=== PATIENT | male | born 2000 | race American Indian/Alaskan Native ===

== ENCOUNTER 2021-03-28 15:05 | Emergency (ER) | payer OTHER, SELFPAY ==
--- NOTE | 2021-03-28 15:29 | Emergency Department Report ---
ED Psych HPI - General Chief Complaint: Psych Stated Complaint: MH EVAL Time Seen by Provider: 03/28/21 15:25 Source: EMS Mode of arrival: Stretcher - History of Present Illness Initial Comments: Chief complaint: Abnormal behavior HPI this is a 20-year-old male with history of mental health disorder noncompliant with psychiatric medications who presents with abnormal behavior. Several bystanders called 911 to report that patient was acting erratically. He was walking naked down hallway [address]. When approached by EMS, he had erratic behavior. He twice jumped out of the ambulance when encouraged to be transported. He exhibited aggressive behavior. He used foul language. Observed circular pressured speech. Patient required chemical restraint with 5 mg Versed, 5 mg Haldol, 50 mg Benadryl. At the scene, police was able to contact mother. Mother states that he lives in [place]. She does not allow him to stay with her because he is not compliant with his medication. She does not know his medications or his diagnosis. Patient is currently sedated. He required four-point restraints during transportation. Phone number for mother [phone] Phone number for father [phone] Complaint: altered mental status -: unknown Associated Psychiatric Symptoms: racing thoughts, other (Aggressive behavior) Quality: constant Improves With: other (unknown) Worsens With: other (unknown) Context: not taking psychiatric - Related Data Allergies Allergy/AdvReac Type Severity Reaction Status Date / Time No Known Allergies Allergy Unverified 03/29/21 09:06 ED Review of Systems ROS: Stated complaint: MH EVAL Other details as noted in HPI Comment: Unobtainable due to pts medical conditions (Patient is sedated) ED Past Medical Hx - Past Medical History Additional medical history: Unable to be obtained - Surgical History Additional Surgical History: Unable to be obtained ED Physical Exam - General Limitations: Altered Mental Status General appearance: other (Sedated protecting airway purposeful movement localizes painful stimuli) - Head Head exam: Present: atraumatic, normocephalic - Eye Eye exam: Present: normal appearance - ENT ENT exam: Present: mucous membranes moist - Neck Neck exam: Present: normal inspection, full ROM - Respiratory Respiratory exam: Present: normal lung sounds bilaterally. Absent: respiratory distress, wheezes, rales, rhonchi - Cardiovascular Cardiovascular Exam: Present: regular rate, normal rhythm, normal heart sounds - GI/Abdominal GI/Abdominal exam: Present: soft. Absent: distended, tenderness, guarding, rebound - Extremities Exam Extremities exam: Present: normal inspection - Neurological Exam Neurological exam: Present: other (Sedated) - Skin Skin exam: Present: warm, dry, intact, normal color ED Course Vital Signs 03/28/21 03/28/21 03/28/21 15:19 15:27 15:30 Temperature 98 F Pulse Rate 105 H 89 Respiratory 16 22 Rate Blood Pressure 113/68 113/68 Blood Pressure 121/77 [Right] O2 Sat by Pulse 98 97 Oximetry 03/28/21 03/28/21 03/28/21 15:46 16:00 16:16 Temperature Pulse Rate 85 83 78 Respiratory 21 21 22 Rate Blood Pressure 122/71 115/70 122/74 Blood Pressure [Right] O2 Sat by Pulse 97 98 99 Oximetry 03/28/21 03/28/21 03/28/21 16:30 16:46 17:00 Temperature Pulse Rate 80 75 61 Respiratory 21 18 18 Rate Blood Pressure 127/75 122/74 127/90 Blood Pressure [Right] O2 Sat by Pulse 99 100 100 Oximetry 03/28/21 03/28/21 03/28/21 17:16 17:30 17:46 Temperature Pulse Rate 69 71 70 Respiratory 21 21 21 Rate Blood Pressure 106/65 107/67 106/67 Blood Pressure [Right] O2 Sat by Pulse 99 97 98 Oximetry 03/28/21 03/28/21 03/28/21 18:00 18:16 18:30 Temperature Pulse Rate 70 Respiratory 21 15 19 Rate Blood Pressure 101/70 101/70 102/66 Blood Pressure [Right] O2 Sat by Pulse 98 99 Oximetry 03/28/21 03/28/21 03/28/21 18:53 19:10 19:20 Temperature Pulse Rate Respiratory 11 L 16 Rate Blood Pressure 126/86 111/62 Blood Pressure [Right] O2 Sat by Pulse 79 L 99 Oximetry 03/29/21 03/29/21 06:05 08:49 Temperature 98.0 F 98.0 F Pulse Rate 65 67 Respiratory 18 20 Rate Blood Pressure Blood Pressure 107/65 109/44 [Right] O2 Sat by Pulse 95 100 Oximetry - Reevaluation(s) Reevaluation #1: 03/28/21 18:41 Upon reevaluation. Patient is arousable slightly sedated. Protecting airway. Purposeful movement. Covered his head with with sheet. ED Medical Decision Making - Lab Data Result diagrams: 03/28/21 15:39 03/28/21 15:39 - Medical Decision Making Acute psychosis with history of mental health disorder. Patient is medically clear for psychiatric care. Additional considerations drug-induced psychosis. Awaiting treatment recommendations by mental health team once patient completely awakens from sedation. Urine tox screen positive for marijuana and benzodiazepine. Patient is medically clear for psychiatric care. He is awake alert. Appropriate for inpatient treatment. 1013 form completed. ED hold order in place. Final disposition according to electronic medical record: Transfer to [facility] Critical care attestation.: If time is entered above; I have spent that time in minutes in the direct care of this critically ill patient, excluding procedure time. ED Disposition Clinical Impression: Acute psychosis Disposition: [id number]/TX-65 PSY HOSP/PSY UNIT Is pt being admited?: No Does the pt Need Aspirin: No Condition: Stable
[2021-03-28 15:51] LABS: Basophils # (Auto) 0.1 K/mm3 (0.0-0.1); Basophils % (Auto) 0.9 % (0.0-1.8); Eosinophils # (Auto) 0.1 K/mm3 (0.0-0.4); Eosinophils % (Auto) 1.5 % (0.0-4.3); Hematocrit 40.5 % (35.5-45.6); Hemoglobin 13.6 gm/dl (11.8-15.2); Lymphocytes # (Auto) 1.4 K/mm3 (1.2-5.4); Lymphocytes % (Auto) 18.6 % (13.4-35.0); Mean Corpuscular HGB Conc 34 % (32-34); Mean Corpuscular Volume 87 fl (84-94); Monocytes # (Auto) 0.8 K/mm3 (0.0-0.8); Monocytes % (Auto) 10.2 % (0.0-7.3); Platelet Count 283 K/mm3 (140-440); Red Blood Count 4.66 M/mm3 (3.65-5.03); Red Cell Distribution Width 12.2 % (13.2-15.2)
[2021-03-28 16:19] LABS: Alanine Aminotransferase 12 units/L (7-56); Albumin 4.8 g/dL (3.9-5); BUN/Creatinine Ratio 23; Blood Urea Nitrogen 23 mg/dL (9-20); Calcium 9.5 mg/dL (8.4-10.2); Hemolysis Index 23
[2021-03-28] MEDS ORDERED: ALUM-MAG HYDROXIDE-SIMETHICONE 200-200-20MG/5ML ORAL LIQD 30 ML PO PRN (18:44)
[2021-03-28] MEDS ORDERED: ACETAMINOPHEN 325 MG TAB PO PRN (18:44)
[2021-03-28 19:31] LABS: Bilirubin,Urine NEG (Negative); Blood,Urine NEG (Negative); Color,Urine Amber (Yellow); Mucus,Urine 3+ /HPF
[2021-03-28 19:39] LABS: Amphetamine Screen,Urine Negative; Cocaine Screen,Urine Negative; Methadone Screen,Urine Negative; Opiate Screen,Urine Negative
[2021-03-28 19:58] LABS: Benzodiazepines Screen,Urine Positive; Cannabinoid Screen,Urine Positive
[2021-03-29 08:51] VITALS: BP 109/44
[2021-03-29] MEDS ORDERED: LORazepam 2 MG/ML VIAL IM ONE (09:05)
--- NOTE | 2021-03-29 09:19 | Consultation ---
History of Present Illness - Reason for Consult Consult date: 03/29/21 Reason for consult: MHE Requesting physician: WYATT SLOAN - History of Present Psychiatric Illness Per ED Provider: CHRISTINA this is a 20-year-old male with history of mental health disorder noncompliant with psychiatric medications who presents with abnormal behavior. Several bystanders called 911 to report that patient was acting erratically. He was walking naked down hallway [address]. When approached by EMS, he had erratic behavior. He twice jumped out of the ambulance when encouraged to be transported. He exhibited aggressive behavior. He used foul language. Observed circular pressured speech. Patient required chemical restraint with 5 mg Versed, 5 mg Haldol, 50 mg Benadryl. At the scene, police was able to contact mother. Mother states that he lives in [place]. She does not allow him to stay with her because he is not compliant with his medication. She does not know his medications or his diagnosis. Patient is currently sedated. He required four-point restraints during transportation. PSYCH HPI Patient is a 20-year-old single unemployed -[place] male with past psychiatric history of Bipolar and schizophrenia history who was brought in by EMS after bystanders reported erratic behavior. Patient seen in isolation due to aggressive and violent behavior by ED staff. Was able to approach patient in the room, patient reported all his life he has been expressing trauma but is unable to describe his trauma. Patient states that he was picked up in a parking lot and did not know what that happened only to wake up here. When asked what makes him angry, patient states that being here makes him very aggressive, report that he has experienced pain all his life, and that his life has not been moving anywhere. Patient endorses marijuana use and he does not do other drug. states his mom and dad lives right here in [place], and he has 3 younger siblings that looks up to him. PSYCH Diagnoses: Bipolar and schizophrenia Suicide attempts or Self-harm behavior: None reported Prior psychiatric hospitalizations: Yes Substance Abuse history: Marijuana Previous psychiatric medications tried: None reported Outpatient treatment: None reported PAST MEDICAL HISTORY: None reported Family Psychiatric History: None reported or documented SOCIAL HISTORY Marital Status: single Living Arrangements: with self Employment Status: unemployed Access to guns/weapons: none reported Education: some college History of Abuse: none reported Legal History: None reported REVIEW OF SYSTEMS Constitutional: Negative for weight loss ENT: Negative for stridor Respiratory: Negative for cough or hemoptysis All other systems reviewed and are negative MENTAL STATUS EXAMINATION General Appearance and Behavior: Age appropriate, fair hygiene, wearing appropriate clothes, lying in bed, poor eye contact, cooperative irritable with questioning. Cooperation: Participating, Hostile and Guarded Psychomotor Behavior: unremarkable and within normal limits Mood: I don't know Affect and affective range: flat, preservative Thought Process: Illogical, Blocked, Thought Content: Hopelessness, Speech: Normal volume, Regular rate and rhythm, Intellectual Functioning: Average Suicidal Ideation: Denies SI Homicidal Ideation: Denies HI Impulse Control: Impaired Insight and Judgment: Limited insight and judgment Memory: Short term memory intact Attention: Divided attention impaired Orientation: Alert, oriented, Assessment and Plan - Psychiatric problem (1) Mood disorder Current Visit: Yes Status: Acute Treatment Plan MEDICATIONS: Risks, benefits and alternatives of medications discussed with the patient, questions answered and consent obtained from patient. PSYCHOTHERAPY: Supportive psychotherapy provided MEDICAL: Per primary team DELIRIUM PRECAUTIONS: Please re-orient patient frequently, keep lights on during the day, and minimize benzodiazepines and opiates as these medications could worsen patient's confusion. DIAGNOSTIC IMAGING MANAGER: DISPOSITION: Do Recommend acute inpatient psychiatric hospitalization at this time. Case discussed with Dr. Mancini who agrees with current disposition LEGAL STATUS: 1013 FOLLOW-UP: Will follow Thank you for the consult. Please contact with any questions and/or concerns. Medications and Allergies Allergies Allergy/AdvReac Type Severity Reaction Status Date / Time No Known Allergies Allergy Unverified 03/29/21 09:06 Active Meds: Active Medications Acetaminophen (Acetaminophen 325 Mg Tab) 650 mg PO Q4HR PRN PRN Reason: Pain MILD(1-3)/Fever >100.5/DUKES Al Hydrox/Mg Hydrox/Simethicone (Alum-Mag Hydroxide-Simethicone 398-125-38gu/5ml Oral Liqd 30 Ml) 30 ml PO Q4HR PRN PRN Reason: Indigestion Mental Status Exam - Vital signs Last Vital Signs Temp 98.0 F 03/29/21 08:49 Pulse 67 03/29/21 08:49 Resp 20 03/29/21 08:49 BP 109/44 03/29/21 08:49 Pulse Ox 100 03/29/21 08:49 Results Result Diagrams: 03/28/21 15:39 03/28/21 15:39 Abnormal lab results 03/28/21 03/28/21 03/28/21 Range/Units 15:39 15:39 15:39 RDW 12.2 L (13.2-15.2) % [place] % (Auto) 10.2 H (0.0-7.3) % BUN 23 H (9-20) mg/dL Ur Specific [place] (1.003-1.030) Salicylates < 0.3 L (2.8-20.0) mg/dL Acetaminophen (10.0-30.0) ug/mL 03/28/21 03/28/21 Range/Units 15:39 19:15 RDW (13.2-15.2) % [place] % (Auto) (0.0-7.3) % BUN (9-20) mg/dL Ur Specific [place] 1.033 H (1.003-1.030) Salicylates (2.8-20.0) mg/dL Acetaminophen 5.0 L (10.0-30.0) ug/mL All other labs normal. Assessment and Plan - Psychiatric problem (1) Mood disorder Current Visit: Yes Status: Acute
--- NOTE | 2021-03-29 10:17 | Event Note ---
Date: 03/29/21 This patient presented yesterday with acute psychosis and required some chemical restraint/treatment at that time. The patient also required a dose of Ativan this morning for similar agitation and/or abnormal behavior. He has been seen by the psychiatric PA but they are full list of recommendations and/or medications are not yet in the chart. Patient was medically cleared by my colleague yesterday. There are no home meds listed at this time for reconciliation. Vital signs have been reassuring throughout his ED course. We will continue to monitor this patient throughout his ED course. Vital Signs - 24 hr 03/28/21 03/28/21 03/28/21 15:19 15:27 15:30 Temperature 98 F Pulse Rate 105 H 89 Respiratory 16 22 Rate Blood Pressure 113/68 113/68 Blood Pressure 121/77 [Right] O2 Sat by Pulse 98 97 Oximetry 03/28/21 03/28/21 03/28/21 15:46 16:00 16:16 Temperature Pulse Rate 85 83 78 Respiratory 21 21 22 Rate Blood Pressure 122/71 115/70 122/74 Blood Pressure [Right] O2 Sat by Pulse 97 98 99 Oximetry 03/28/21 03/28/21 03/28/21 16:30 16:46 17:00 Temperature Pulse Rate 80 75 61 Respiratory 21 18 18 Rate Blood Pressure 127/75 122/74 127/90 Blood Pressure [Right] O2 Sat by Pulse 99 100 100 Oximetry 03/28/21 03/28/21 03/28/21 17:16 17:30 17:46 Temperature Pulse Rate 69 71 70 Respiratory 21 21 21 Rate Blood Pressure 106/65 107/67 106/67 Blood Pressure [Right] O2 Sat by Pulse 99 97 98 Oximetry 03/28/21 03/28/21 03/28/21 18:00 18:16 18:30 Temperature Pulse Rate 70 Respiratory 21 15 19 Rate Blood Pressure 101/70 101/70 102/66 Blood Pressure [Right] O2 Sat by Pulse 98 99 Oximetry 03/28/21 03/28/21 03/28/21 18:53 19:10 19:20 Temperature Pulse Rate Respiratory 11 L 16 Rate Blood Pressure 126/86 111/62 Blood Pressure [Right] O2 Sat by Pulse 79 L 99 Oximetry 03/29/21 03/29/21 06:05 08:49 Temperature 98.0 F 98.0 F Pulse Rate 65 67 Respiratory 18 20 Rate Blood Pressure Blood Pressure 107/65 109/44 [Right] O2 Sat by Pulse 95 100 Oximetry
== END 2021-03-29 16:53 ==
LOC: ED 15:05
DX: F23 Brief psychotic disorder (principal); Z20.822 Contact with and (suspected) exposure to COVID-19; R41.82 Altered mental status, unspecified; Z79.899 Other long term (current) drug therapy
CPT/HCPCS: 36415; 80053; 80307; 81001; 85025; 96372; 99285; J2060; U0003; 80320; G0480